=== PATIENT | male | born 1945 | race Two or more races ===

== ENCOUNTER 2019-11-20 07:51 | Emergency (ER) | payer OTHER ==
[2019-11-20 08:11] VITALS: BP 161/74; PULSE 63; TEMP 98.7; BMI 23.8
[2019-11-20] MEDS ORDERED: METOCLOPRAMIDE HCL INJECTION 10 MG/2 ML VIAL IVPB ONE (08:13)
--- NOTE | 2019-11-20 08:19 | PDOC ---
History of Present Illness - General Chief Complaint: Respiratory Stated Complaint: FEVER,COUGH,SHORTNESS OF BREATH Time Seen by Provider: 11/20/19 07:53 - History of Present Illness Initial Comments: 11/20/19 08:14 74 M with h/o HTN, DM, HLD, CAD/CABG presenting to ED with 1 week of cough. Pt states that he recently travelled from [facility], arrived home on 11/06. However, he did not begin to feel sick until a week later on 11/13, when he developed a productive cough. Pt denies any fevers/chills. He states that over the past 4 days, he also began to experience hiccups. He states that they are intermittent , worse when he lies down at night. He took tagamet with no relief. Pt denies any significant leg swelling. Denies any calf pain. Pt denies any CP but states that he sometimes feels it is hard to catch his breath because of the hiccups. Denies SANTOS or orthopnea. Past History - Past Medical History Allergies/Adverse Reactions: Allergies Allergy/AdvReac Type Severity Reaction Status Date / Time No Known Allergies Allergy Verified 11/20/19 08:04 Home Medications: Ambulatory Orders Amlodipine Besylate 5 mg PO DAILY 11/20/19 Losartan Potassium 50 mg PO BID 11/20/19 Metformin HCl [Glucophage] 1,000 mg PO BID 11/20/19 Metoprolol Tartrate [Lopressor] 100 mg PO HS 11/20/19 COPD: No Diabetes: Yes HTN: Yes Other medical history: PAD - Surgical History Cardiac Surgery: Yes (CORONARY BYPASS) - Psycho Social/Smoking Cessation Hx Smoking History: Never smoked Hx Alcohol Use: No Drug/Substance Use Hx: No Review of Systems - Review of Systems Comments:: 11/20/19 08:19 GENERAL/CONSTITUTIONAL: No fever or chills. No weakness. HEAD, EYES, EARS, NOSE AND THROAT: No change in vision. No ear pain or discharge. No sore throat. CARDIOVASCULAR: No chest pain, no shortness of breath, no loss of consciousness RESPIRATORY: + cough, hiccups, no wheezing, or hemoptysis. GASTROINTESTINAL: No nausea, vomiting, diarrhea or constipation. GENITOURINARY: No dysuria, frequency, or change in urination. MUSCULOSKELETAL: No joint or muscle swelling or pain. No neck or back pain. SKIN: No rash NEUROLOGIC: No vertigo, no change in strength/sensation. ENDOCRINE: No increased thirst. No abnormal weight change. HEMATOLOGIC/LYMPHATIC: No anemia, easy bleeding, or history of blood clots. ALLERGIC/IMMUNOLOGIC: No hives or skin allergy. *Physical Exam - Vital Signs Last Vital Signs Temp Pulse Resp BP Pulse Ox 98.7 F 63 19 161/74 100 11/20/19 07:53 11/20/19 07:53 11/20/19 07:53 11/20/19 07:53 11/20/19 07:53 - Physical Exam 11/20/19 08:19 "GENERAL: Awake, alert, and fully oriented, in no acute distress. HEAD: No signs of trauma EYES: PERRLA, EOMI, sclera anicteric, conjunctiva clear ENT: Auricles normal inspection, hearing grossly normal, nares patent, oropharynx clear without exudates. Moist mucosa NECK: Nontender, no stepoffs, Normal ROM, supple, no lymphadenopathy, JVD, or masses LUNGS: Breath sounds equal, clear to auscultation bilaterally. No wheezes, and no crackles HEART: Regular rate and rhythm, normal S1 and S2, no murmurs, rubs or gallops ABDOMEN: Soft, nontender, normoactive bowel sounds. No guarding, no rebound. No masses EXTREMITIES: Normal range of motion, no edema. No clubbing or cyanosis. No cords, erythema, or tenderness NEUROLOGICAL: Cranial nerves II through XII intact. 5/5 strength and sensation in all extremities, Normal speech, normal gait, normal cerebellar function SKIN: Warm, Dry, normal turgor, no rashes or lesions noted. ED Treatment Course - LABORATORY CBC & Chemistry Diagram: 11/20/19 08:30 11/20/19 08:30 - RADIOLOGY Radiology Studies Ordered: Category Date Time Status CHEST PA & LAT [RAD] Stat Radiology 11/20/19 08:13 Ordered Medical Decision Making - Medical Decision Making 11/20/19 08:19 74 M with cough and hiccups. Suspect URI/bronchitis. Pt with clear lungs and no fever, making PNA less likely. Pt recently traveled from [place] but did not develop symptoms until over a week after his return. No mosquito bites reported. - Labs - CXR - EKG - Reglan for hiccups 11/20/19 09:41 Labs and CXR unremarkable Pt reassessed - hiccups resolved after reglan Pt given albuterol neb, which helped significantly with cough. Will DC with albuterol MDI and Z-pack Pt is well appearing, with normal vitals. Clinically stable for DC at this time. I discussed the physical exam findings, ancillary test results and final diagnoses with the patient. I answered all of the patient's questions. The patient was satisfied with the care received and felt comfortable with the discharge plan and treatment plan. The patient agrees to follow up with the primary care physician within 24-72 hours. Discharge - Discharge Information Problems reviewed: Yes Clinical Impression/Diagnosis: Cough, Hiccups, Bronchitis Condition: Stable - Follow up/Referral - Patient Discharge Instructions Patient Printed Discharge Instructions: DI for Acute Bronchitis Additional Instructions: Take the azithromycin as prescribed for 4 more days. Use the albuterol inhaler every 4-6 hours as needed for cough. If you experience worsening cough, chest pain, shortness of breath, or any other concerning symptoms, return to the ER immediately. Otherwise, follow up with your primary doctor within 1 week. - Post Discharge Activity
[2019-11-20] MEDS ORDERED: METOCLOPRAMIDE HCL INJECTION 10 MG/2 ML VIAL ONE (08:21)
[2019-11-20 08:56] LABS: BASO % 0.4 % (0-2.0); EOS % 3.9 % (0-4.5); HEMATOCRIT 43.6 % (35.4-49); HEMOGLOBIN 14.5 GM/dl (11.7-16.9); LYMPH % 14.1 % (8-40); MCH 28.3 pg (25.7-33.7); MCHC 33.2 g/dl (32.0-35.9); MEAN CELL VOLUME 85.3 fl (80-96); MEAN PLT VOLUME 9.9 fl (7.5-11.1); MONO % 8.6 % (3.8-10.2); PLATELET COUNT 193 K/MM3 (134-434); RBC 5.11 M/mm3 (4.00-5.60); RDW 12.8 % (11.9-15.9); WHITE BLOOD COUNT 11.1 K/mm3 (4.0-10.8)
[2019-11-20 09:02] LABS: INR 1.11 (0.82-1.09); PROTHROMBIN TIME (PATIENT) 12.4 SEC (10.2-13.0)
[2019-11-20 09:04] LABS: BILIRUBIN,TOTAL 0.8 mg/dl (0.2-1); CALCIUM 8.4 mg/dl (8.5-10); CREATININE 1.4 mg/dl (0.55-1.3); POTASSIUM 4.1 mmol/L (3.5-5.1); TOT PROT 7.1 g/dl (6.4-8.2)
[2019-11-20 09:16] LABS: EPITHELIAL CELLS FEW /hpf
[2019-11-20] MEDS ORDERED: ALBUTEROL SO4 0.083% IH SOL 2.5 MG/3 ML VIAL.NEB. NEB ONE ×2 (09:18→09:20)
[2019-11-20] MEDS ORDERED: AZITHROMYCIN 250 MG TABLET PO ONE (09:25)
[2019-11-20] MEDS ORDERED: AZITHROMYCIN 250 MG TABLET ONE (09:37)
[2019-11-20] MEDS ORDERED: chlorproMAZINE HCL 25 MG TABLET PO STA ×2 (09:47→09:54)
[2019-11-20] MEDS ORDERED: PROCHLORPERAZINE MALEATE 5 MG TABLET ONE (09:52)
--- NOTE | 2019-11-20 10:16 | EKG ---
Test Reason : Blood Pressure : / mmHG Vent. Rate : 069 BPM Atrial Rate : 069 BPM P-R Int : 164 ms QRS Dur : 100 ms QT Int : 400 ms P-R-T Axes : 064 -50 -29 degrees QTc Int : 428 ms NORMAL SINUS RHYTHM POSSIBLE LEFT ATRIAL ENLARGEMENT LEFT AXIS DEVIATION INCOMPLETE RIGHT BUNDLE BRANCH BLOCK INFERIOR INFARCT , AGE UNDETERMINED ABNORMAL ECG NO PREVIOUS ECGS AVAILABLE Confirmed by Guillermo Burton MD ([id number]) on 11/20/2019 10:16:41 AM Referred By: BAN PURDY Confirmed By:Guillermo Burton MD
== END 2019-11-20 10:02 | disposition home or self-care (01) ==
LOC: FER 07:51
PROC: 3E033GC Introduction of Other Therapeutic Substance into Peripheral Vein, Percutaneous Approach (ICD-10-PCS; principal; 2019-11-20)
PROC: 3E0F7GC Introduction of Other Therapeutic Substance into Respiratory Tract, Via Natural or Artificial Opening (ICD-10-PCS; 2019-11-20)
DX: J20.9 Acute bronchitis, unspecified (principal); R05 Cough; R06.6 Hiccough; I10 Essential (primary) hypertension; E78.5 Hyperlipidemia, unspecified; E11.9 Type 2 diabetes mellitus without complications; I25.10 Atherosclerotic heart disease of native coronary artery without angina pectoris; Z95.1 Presence of aortocoronary bypass graft; Z79.84 Long term (current) use of oral hypoglycemic drugs
CPT/HCPCS: 36415; 71046-TC-FY; 80053; 81003; 81015; 82550; 83880; 84484; 85025; 85610; 85730; 87086; 93005; 99283-25

== ENCOUNTER 2019-11-21 11:52 | Emergency (ER) | payer OTHER ==
[2019-11-21 12:09] VITALS: TEMP 98.4; BMI 34.0
--- NOTE | 2019-11-21 12:12 | PDOC ---
History of Present Illness - General Chief Complaint: Cold Symptoms Stated Complaint: COUGH, HICCOUGHS Time Seen by Provider: 11/21/19 11:57 History Source: Patient Exam Limitations: No Limitations - History of Present Illness Initial Comments: 11/21/19 12:11 74 y/o male seen yesterday for cough and hiccups presents to ER with continuing hiccups. Patient states was placed on Z-pack and given Reglan and Albuterol yesterday. Cough better but still with hiccups for 5 days. No SOB or chest pain. Was ordered Thorazine but has not picked up yet. Did not have in Er yesterday. Denies fever or chills. Past History - Past Medical History Allergies/Adverse Reactions: Allergies Allergy/AdvReac Type Severity Reaction Status Date / Time No Known Allergies Allergy Verified 11/20/19 08:04 Home Medications: Ambulatory Orders Albuterol Sulfate Inhaler - [Ventolin HFA Inhaler -] 1 - 2 inh PO Q4H #1 inhaler 11/20/19 Amlodipine Besylate 5 mg PO DAILY 11/20/19 Azithromycin 250 mg PO DAILY #4 tablet 11/20/19 Chlorpromazine [Thorazine -] 25 mg PO TID PRN #14 tablet 11/20/19 Losartan Potassium 50 mg PO BID 11/20/19 Metformin HCl [Glucophage] 1,000 mg PO BID 11/20/19 Metoprolol Tartrate [Lopressor] 100 mg PO HS 11/20/19 Metoclopramide HCl [Reglan] 10 mg PO TID PRN 11/21/19 Cardiac Disorders: Yes (CAD) COPD: No Diabetes: Yes HTN: Yes Hypercholesterolemia: Yes - Surgical History Cardiac Surgery: Yes (CORONARY BYPASS) - Psycho Social/Smoking Cessation Hx Smoking History: Never smoked Hx Alcohol Use: No Drug/Substance Use Hx: No Review of Systems - Review of Systems Able to Perform ROS?: Yes Is the patient limited [place] proficient: No Constitutional: No: Chills, Fever Respiratory: Yes: Cough. No: Shortness of Breath Cardiac (ROS): No: Chest Pain ABD/GI: No: Nausea, Vomiting All Other Systems: Reviewed and Negative *Physical Exam - Physical Exam General Appearance: Yes: Nourished, Appropriately Dressed. No: Apparent Distress HEENT: positive: EOMI, MARCO, Normal ENT Inspection, Normal Voice, Symmetrical Neck: positive: Trachea midline, Normal Thyroid, Supple. negative: Tender, Rigid Respiratory/Chest: positive: Lungs Clear, Normal Breath Sounds. negative: Chest Tender, Respiratory Distress Cardiovascular: positive: Regular Rhythm, Regular Rate, S1, S2. negative: Edema , JVD, Murmur Vascular Pulses: Femoral (R): 4+, Femoral (L): 4+, Carotid (R): 4+, Carotid (L) : 4+, Dorsalis-Pedis (R): 4+, Doralis-Pedis (L): 4+ Gastrointestinal/Abdominal: positive: Normal Bowel Sounds, Flat, Soft. negative : Tender, Organomegaly Lymphatic: negative: Adenopathy, Tenderness, Other Musculoskeletal: positive: Normal Inspection. negative: CVA Tenderness Extremity: positive: Normal Capillary Refill, Normal Inspection, Normal Range of Motion. 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 NML intact, Fully Oriented, Alert, Normal Mood/ Affect, Normal Response, Motor Strength 5/ ED Treatment Course - ADDITIONAL ORDERS Additional order review: 11/21/19 12:13 Will treat with PO Thorazine first and if no better Valium PT in agreement with plan 11/21/19 13:35 Pt is feeling better after Thorazine dose No hiccups Will return to ER if worsens Discharge - Discharge Information Problems reviewed: Yes Clinical Impression/Diagnosis: Hiccups Condition: Good Disposition: HOME - Admission No - Follow up/Referral Referrals: Catherine Dhaliwal [Primary Care Provider] - - Patient Discharge Instructions Patient Printed Discharge Instructions: DI for Hiccups Additional Instructions: Fluids, rest, Tylenol Take second dose Thorazine tomorrow if continues If worsen return to ER - Post Discharge Activity
[2019-11-21] MEDS ORDERED: chlorproMAZINE HCL 25 MG TABLET PO ONE ×3 (12:20→12:45)
[2019-11-21] MEDS ORDERED: diazePAM 5 MG TABLET PO ONE ×2 (13:54→15:33)
[2019-11-21] MEDS ORDERED: diazePAM 5 MG TABLET ONE ×2 (13:57→15:36)
[2019-11-21 15:41] VITALS: BP 155/61; PULSE 77
== END 2019-11-21 15:38 | disposition home or self-care (01) ==
LOC: SUPCPDRO 11:52 → FER 11:52
DX: R06.6 Hiccough (principal); I10 Essential (primary) hypertension; E78.5 Hyperlipidemia, unspecified; E11.9 Type 2 diabetes mellitus without complications; I25.10 Atherosclerotic heart disease of native coronary artery without angina pectoris; Z95.1 Presence of aortocoronary bypass graft; Z79.84 Long term (current) use of oral hypoglycemic drugs
CPT/HCPCS: 99281-25